=== PATIENT | female | born 1990 | race Caucasian/White ===

== ENCOUNTER 2018-06-03 08:09 | Day surgery (SDC) | payer OTHER, BC ==
[2018-06-03 08:49] LABS: INTERNATIONAL RATION (INR) 1.05; PROTHROMBIN TIME 14.2 SEC (11.4-15.4)
[2018-06-03 08:50] LABS: PARTIAL THROMBOPLASTIN TIME 33.1 SEC (23.5-35.8)
[2018-06-03 10:54] LABS: APPEARANCE ALL TUBES CLEAR; COLOR ALL TUBES COLORLESS; CSF TUBE NUMBER 3
[2018-06-03 10:55] LABS: RED BLOOD CELL,CSF 0 /uL (0-10); WHITE BLOOD CELL,CSF 1 /uL (0-5)
[2018-06-03 11:27] LABS: GLUCOSE,CSF 53 mg/dL (40-70); PROTEIN,CSF 77 mg/dL (12-60)
[2018-06-03 12:09] VITALS: BP 100/63
--- NOTE | 2018-06-03 12:49 | RADIOLOGY REPORT (SQ) ---
EXAM DESCRIPTION: LUMBAR PUNCTURE COMPLETED DATE/TIME: 06/03/2018 10:25 am REASON FOR STUDY: HEADACHES COMPARISON: None. FLUOROSCOPY TIME: 28 seconds. 3 images saved to PACS. TECHNIQUE: Fluoroscopic guided lumbar puncture with opening and closing pressures. LIMITATIONS: None. PROCEDURE: After written consent and assessment were obtained, the patient was brought into the fluo roscopy room and placed prone on the table. The patient's lower back was prepped in a sterile fashio n and an entry site was selected under live fluoroscopic guidance. The entry site was anesthetized wi th 1% lidocaine. A 20 gauge needle was advanced through the skin and into the thecal sac at the level of L3-L4. An opening pressure of 19 mm water units was obtained. After approximately 11ml of CSF wa s drained, a closing pressure of 13 mm water units was obtained. The needle was removed and a sterile bandage was placed of the site. Specimens were sent to the lab for testing. A fluoroscopic spot imag e was saved to PACS confirming level access. FINDINGS: Clear CSF IMPRESSION: Lumbar puncture under fluoroscopy. No immediate complication. COMMENT: Patient medication list reviewed:Yes- Quality ID# [id number]:Eligible professional attests to docu menting in the medical record they obtained, updated, or reviewed the patient's current medications.. Quality ID [id number]: Final reports for procedures using fluoroscopy that document radiation exposure costa ly, or exposure time and number of fluorographic images (if radiation exposure indices are not avail able) TECHNICAL DOCUMENTATION: JOB ID: [id number] [employer]- All Rights Reserved Reading location - IP/workstation name: [email or web address]
== END 2018-06-03 12:09 | disposition home or self-care (01) ==
LOC: RAD 08:09
DX: R51 Headache (principal)
CPT/HCPCS: 36415; 62270; 77003; 82945; 84157; 85610; 85730; 87070; 87205; 89050

== ENCOUNTER 2018-11-04 09:58 | Outpatient (CLI) | payer OTHER, BC ==
[2018-11-04 10:48] LABS: BACTERIA (WET MOUNT) 4+ BACTERIA SEEN; RBCS (WET MOUNT) RARE RBCS SEEN; T.VAGINALIS (WET MOUNT) NO TRICHOMONAS SEEN; WBCS (WET MOUNT) FEW WBCS SEEN; YEAST (WET MOUNT) NO YEAST SEEN
[2018-11-04 10:49] LABS: EPITHELIALS (WET MOUNT) 3+ EPITHELIALS SEEN
[2018-11-04 11:07] LABS: APPEARANCE,URINE SLIGHTLY-CLOUDY; BILIRUBIN,URINE NEGATIVE (NEGATIVE); COLOR,URINE YELLOW; GLUCOSE, URINE NEGATIVE (NEGATIVE); KETONES,URINE NEGATIVE (NEGATIVE); LEUKOCYTE ESTERASE,URINE SMALL (NEGATIVE); NITRITE,URINE NEGATIVE (NEGATIVE); PROTEIN,URINE NEGATIVE (NEGATIVE); URINE SPECIFIC GRAVITY 1.024; UROBILINOGEN,URINE NEGATIVE mg/dL (<2.0)
[2018-11-04 11:17] LABS: URINE AMPHETAMINES SCREEN NEGATIVE; URINE BARBITURATES SCREEN NEGATIVE; URINE BENZODIAZEPINES SCREEN NEGATIVE; URINE COCAINE SCREEN NEGATIVE; URINE MARIJUANA (THC) SCREEN NEGATIVE; URINE METHADONE SCREEN NEGATIVE; URINE PHENCYCLIDINE SCREEN NEGATIVE
--- NOTE | 2018-11-04 11:35 | RADIOLOGY REPORT (SQ) ---
EXAM DESCRIPTION: U/S OB LIMITED COMPLETED DATE/TIME: 11/04/2018 11:16 am REASON FOR STUDY: cramping, cervical length, presentation, growth COMPARISON: None. TECHNIQUE: Limited transvaginal grayscale ultrasound for evaluation of specific requested obstetrica l parameters. LIMITATIONS: None. FINDINGS: CERVICAL LENGTH: 3.0 cm. Closed. AMOS: 4.7 cm. FHR: 157 beats per minute. PRESENTATION: Breech. PLACENTA: Posterior ANATOMY: Not assessed OTHER: Estimated gestational age 25 weeks 2 days. Estimated weight 804 g. 47th percentile. IMPRESSION: LIMITED OBSTETRICAL ULTRASOUND WITH MEASURED PARAMETERS DELINEATED ABOVE. Trimester of : Second trimester - 13 weeks 1 day to 27 weeks 6 days. TECHNICAL DOCUMENTATION: JOB ID: [id number] [employer]- All Rights Reserved Reading location - IP/workstation name: [email or web address]
[2018-11-04 12:14] LABS: CHLAM PCR NOT DETECTED (NOT DETECT)
== END 2018-11-04 12:04 | disposition home or self-care (01) ==
LOC: LC 09:58
PROVIDERS: ATTEND Student in an Organized Health Care Education/Training Program
PROC: 4A1HXCZ Monitoring of Products of Conception, Cardiac Rate, External Approach (ICD-10-PCS; principal; 2018-11-04)
DX: O26.892 Other specified pregnancy related conditions, second trimester (principal); R10.9 Unspecified abdominal pain; Z3A.25 25 weeks gestation of pregnancy
CPT/HCPCS: 76815; 80307; 81001; 87086; 87210; 87491; 87591

== ENCOUNTER 2018-11-11 21:16 | Observation (INO) | payer OTHER, BC ==
[2018-11-11 22:14] LABS: APPEARANCE,URINE CLEAR; BILIRUBIN,URINE NEGATIVE (NEGATIVE); COLOR,URINE STRAW; GLUCOSE, URINE NEGATIVE (NEGATIVE); KETONES,URINE NEGATIVE (NEGATIVE); LEUKOCYTE ESTERASE,URINE NEGATIVE (NEGATIVE); NITRITE,URINE NEGATIVE (NEGATIVE); PROTEIN,URINE NEGATIVE (NEGATIVE); URINE SPECIFIC GRAVITY 1.004; UROBILINOGEN,URINE NEGATIVE mg/dL (<2.0)
[2018-11-11 22:22] LABS: URINE AMPHETAMINES SCREEN NEGATIVE; URINE BARBITURATES SCREEN NEGATIVE; URINE BENZODIAZEPINES SCREEN NEGATIVE; URINE COCAINE SCREEN NEGATIVE; URINE MARIJUANA (THC) SCREEN NEGATIVE; URINE METHADONE SCREEN NEGATIVE; URINE PHENCYCLIDINE SCREEN NEGATIVE
[2018-11-11] MEDS ORDERED: HYDROXYZINE PAMOATE 50 MG CAPSULE PO ONE (23:38)
[2018-11-11] MEDS ORDERED: HYDROXYZINE PAMOATE 50 MG CAPSULE ONE (23:39)
--- NOTE | 2018-11-11 23:48 | RADIOLOGY REPORT (SQ) ---
EXAM DESCRIPTION: RadLex: US LIMITED CLINICAL HISTORY: 27 years Female, cervical length COMPARISON: 11/04/2018 FINDINGS: Single viable IUP is again noted, transverse position. Cervix: 3.1 cm, closed AMOS 11.7 cm Placenta: Posterior. No previa. IMPRESSION: 1. Cervix is 3.1 cm long, closed
[2018-11-12] MEDS ORDERED: NIFEDIPINE 10 MG CAPSULE ONE ×3 (00:17→00:59)
[2018-11-12] MEDS ORDERED: NIFEDIPINE 10 MG CAPSULE PO ONE (00:18)
[2018-11-12] MEDS ORDERED: MORPHINE SULFATE 10 MG/ML INJ IM ONE (02:47)
[2018-11-12] MEDS ORDERED: MORPHINE SULFATE 10 MG/ML INJ ONE (03:06)
[2018-11-12] MEDS ORDERED: NALBUPHINE HCL INJ 10 MG/1 ML AMPULE ONE (03:12)
[2018-11-12] MEDS ORDERED: NALBUPHINE HCL INJ 10 MG/1 ML AMPULE INJ ONE (03:14)
[2018-11-12] MEDS ORDERED: RINGERS SOLUTION,LACTATED 1,000 ML IV ONE (03:16)
[2018-11-12] MEDS ORDERED: RINGERS SOLUTION,LACTATED 1,000 ML IV PRN (03:16)
--- NOTE | 2018-11-12 03:38 | Admission Physical ---
Datetime Report Generated by CPN: 11/12/2018 03:38 CURRENT ADMISSION Chief Complaint: Uterine Contractions Indication for Induction: Not Applicable Admit Impression : , Intrauterine ; No Active Labor; Intact Membranes; Observation/Evaluation Admit Plan: Admit to Unit; Observation/Evaluation ALLERGIES Medication Allergies: No Medication Allergies: adhesive/MO (11/11/2018); gabapentin/MO/Eczema like mesha (11/04/2018); latex (11/04/2018) Latex: Latex Allergies Food Allergies: none Environmental Allergies: none OBSTETRICAL HISTORY EDC: 02/15/2019 00:00 : 5 Para: 1 Term: 1 : 0 SAB: 3 IAB: 0 Livin Gestational Diabetes: No Rh Sensitization: No Incompetent Cervix: No KYLE: No Infertility: No ART Treatment: No Uterine Anomaly: No IUGR: No Hx Previous C/S: No Macrosomia: No Hx Loss/Stillborn: No PIH: No Hx : No Placenta Previa/Abruption: No Depression/PP Depression: No PTL/PROM: No Post Hemorrhage: No Current Procedures: Ultrasound Obstetrical History Comments: 2011 37 weeks male at [facility]- born with 4 kidneys g2 2011 8 weeks g3 2013 6 weeks D_C g4 2014 g5 current 2019 SEE RECORDS Alcohol: No Marijuana : No Cocaine: No Other Illicit Drugs: No Cigarettes: Former Smoker. [id number] MEDICAL HISTORY Diabetes: No Blood Transfusion: No Pulmonary Disease (Asthma, TB): No Breast Disease: No Hypertension: No Shoulder Sawyer Surgery: Yes Heart Disease: No Hosp/Surgery: Yes Autoimmune Disorder: No Anesthetic Complications: No Kidney Disease: No Abnormal Pap Smear: Yes Neuro/Epilepsy: Yes Psychiatric Disorders: No Other Medical Diseases: No Hepatitis/Liver Disease: No Significant Family History: Yes Varicosities/Phlebitis: No Trauma/Violence : No Thyroid Dysfunction: Yes Medical History Comments: hypothyriod, fallopian tube surgery in 2011, abnormal pap in 2018, RSD, recent dx of pseudotumor- seeing Dr. Clinton, fibroids, Rt oophrectomy, hx of crioniotomy and spinal stimulator, chiari malformation type 1, D_C INFECTIOUS HISTORY Gonorrhea: No Genital Herpes: No Chlamydia: No Tuberculosis: No Syphilis: No Hepatitis: No HIV/AIDS Exposure: No Rash or Viral Illness: No HPV: No PHYSICAL EXAM General: Normal HEENT: Normal Neurologic: Normal Thyroid: Deferred Heart: Normal Lungs: Normal Breast: Deferred Back: Normal Abdomen: Normal Genitourinary Exam: Normal Extremities: Normal DTRs: Normal Pelvic Type: Adequate Vital Signs: Reviewed VAGINAL EXAM Dilatation: 0 Effacement: 0 Station: -3 Contraction Comments: q 5 - 10 MEMBRANES Membranes: Intact FETUS A EGA: 26.3 Monitoring: External US FHR- Baseline: 145 Variability: Moderate 6-25bpm Accelerations: 10X10 Decelerations: None Presentation: Transverse Admit Comment: 27yo at 26+3ega presents for contractions. She was seen on labor and delivery on 11/04 with similar complaints. Cvx was closed on 11/04 and on repeat evaluation at approximately 0230 this am. Family and patient in room and feel that there is more to be done even after giving vistaril and procardia 10mg q 15 x 3 doses. She reports despite treatment her contractions are closer together and stronger and is breathing with them. [facility] that there is no change on her cervical length from last week to one done at 2330 last night and that cvx is still unchanged. Pt still insistent that contractions have increased in length and intensity. However, tocometry with very irregular ctx q 4 to 18 minutes - patient reports contractions q 5-7 minutes. She has multiple large uterine fibroids which we have reviewed in the office and here that are likely contributing to the contractions and her discomfort. She has been given motrin in the past to help with fibroid discomfort. Reviewed re-evaluation in a couple of hours and if no change that would recommend discharge. Consider motrin again or even indomethicin at discharge. Procardia did not impact contractions per patient. OBserve and repeat cervical length in am. PLANS FOR LABOR AND DELIVERY Labor and Delivery: None Feeding Preference: Breast Benefit of [employer] Discussed: Yes Circumcision: N/A INFORMED CONSENT Informed Consent Obtained: Section Delivery; Risks, Benefits and Alternatives Discussed Signature: with User ID: [email or web address]
--- NOTE | 2018-11-12 08:49 | RADIOLOGY REPORT (SQ) ---
EXAM DESCRIPTION: U/S OB LIMITED COMPLETED DATE/TIME: 11/12/2018 8:20 am REASON FOR STUDY: repeat cervical length COMPARISON: 11/11/2018 TECHNIQUE: Limited transabdominal grayscale ultrasound for evaluation of specific requested obstetri nayan parameters. LIMITATIONS: None. FINDINGS: CERVICAL LENGTH: 3.7 cm (on the prior examination it measured 3.1 cm). Closed. Cervical funneling at the internal os measures 4.8 cm (this may be related to the patient's history o f contractions). FHR: 140 beats per minute. PLACENTA: Not assessed ANATOMY: Not assessed OTHER: Anterior uterine fibroid measures 7.1 x 6.4 x 6.7 cm. IMPRESSION: 1. LIMITED OBSTETRICAL ULTRASOUND WITH MEASURED PARAMETERS DELINEATED ABOVE. 2. The cervix is 3.7 cm long, closed. Please see above. 3. Anterior uterine fibroid, see above. Trimester of : Second trimester - 13 weeks 1 day to 27 weeks 6 days. TECHNICAL DOCUMENTATION: JOB ID: [id number] [employer]- All Rights Reserved Reading location - IP/workstation name: [email or web address]
[2018-11-12] MEDS ORDERED: LEVOTHYROXINE SODIUM 0.025 MG TABLET PO SCH (09:00)
[2018-11-12] MEDS ORDERED: LEVOTHYROXINE SODIUM 0.112 MG TABLET PO SCH (09:00)
[2018-11-12 09:08] LABS: ABSOLUTE EOSINOPHILS # (AUTO) 0.1 10^3/uL (0.0-0.6); ABSOLUTE LYMPHOCYTES (AUTO) 1.7 10^3/uL (0.5-4.7); ABSOLUTE MONOCYTES (AUTO) 0.8 10^3/uL (0.1-1.4); ABSOLUTE NEUT (AUTO) 9.2 10^3/uL (1.7-8.2); BASOPHILS % (AUTO) 0.4 % (0-2); EOSINOPHILS % (AUTO) 1.1 % (0-6); HEMATOCRIT 30.1 % (36.0-47.0); HEMOGLOBIN 10.5 g/dL (12.0-15.5); LYMPHOCYTES % (AUTO) 14.4 % (13-45); MEAN CORPUSCULAR HEMOGLOBIN 29.7 pg (27.0-33.4); MEAN CORPUSCULAR HGB CONC 34.7 g/dL (32.0-36.0); MEAN CORPUSCULAR VOLUME 86 fl (80-97); MONOCYTES % (AUTO) 6.4 % (3-13); PLATELET COUNT 292 10^3/uL (150-450); RED BLOOD COUNT 3.52 10^6/uL (3.72-5.28); RED CELL DISTRIBUTION WIDTH 14.4 % (11.5-14.0); SEGMENTED NEUTROPHILS % (AUTO) 77.7 % (42-78); TOTAL CELLS COUNTED % (AUTO) 100 %; WHITE BLOOD COUNT 11.8 10^3/uL (4.0-10.5)
--- NOTE | 2018-11-12 09:59 | Discharge Summary ---
Discharge Summary (SDC) - Discharge Final Diagnosis: false labor Discharge Date: 11/12/18 Condition: Good Treatment or Instructions: f/u in am at [facility] and begin tid [facility]errals: [facility] - Discharge Diet: As Tolerated Discharge Activity: Activity As Tolerated, Balance Activity w/Rest, Walk Frequently Home Care Assistance: None Needed Report the Following to Your Physician Immediately: Increase in Pain, Fever over 101 Degrees, Unusual Bleeding, Swelling, Increased Soreness, Large Clots
[2018-11-12] MEDS ORDERED: LEVOTHYROXINE SODIUM 0.1 MG TABLET PO SCH (10:00)
== END 2018-11-12 10:05 | disposition home or self-care (01) ==
LOC: LC 21:16 → LR 11-12 02:55
PROVIDERS: ADMIT Student in an Organized Health Care Education/Training Program; ATTEND Student in an Organized Health Care Education/Training Program
DX: O47.02 False labor before 37 completed weeks of gestation, second trimester (principal); Z3A.26 26 weeks gestation of pregnancy
CPT/HCPCS: 36415; 85025; 81001; 80307; 76815 ×2; J2300; J3490; G0378; G0379; J2270

== ENCOUNTER 2019-02-03 20:24 | Outpatient (CLI) | payer BC, OTHER ==
[2019-02-03 21:12] LABS: APPEARANCE,URINE CLOUDY; BILIRUBIN,URINE NEGATIVE (NEGATIVE); COLOR,URINE AMBER; GLUCOSE, URINE 50 mg/dL (NEGATIVE); KETONES,URINE 20 mg/dL (NEGATIVE); LEUKOCYTE ESTERASE,URINE TRACE (NEGATIVE); NITRITE,URINE NEGATIVE (NEGATIVE); PROTEIN,URINE 30 mg/dL (NEGATIVE); URINE SPECIFIC GRAVITY 1.023; UROBILINOGEN,URINE NEGATIVE mg/dL (<2.0)
[2019-02-03 21:31] LABS: URINE AMPHETAMINES SCREEN NEGATIVE; URINE BARBITURATES SCREEN NEGATIVE; URINE BENZODIAZEPINES SCREEN NEGATIVE; URINE COCAINE SCREEN NEGATIVE; URINE MARIJUANA (THC) SCREEN NEGATIVE; URINE METHADONE SCREEN NEGATIVE; URINE PHENCYCLIDINE SCREEN NEGATIVE
[2019-02-03] MEDS ORDERED: NALBUPHINE HCL INJ 10 MG/1 ML AMPULE INJ ONE (23:15)
[2019-02-03] MEDS ORDERED: NALBUPHINE HCL INJ 10 MG/1 ML AMPULE ONE (23:16)
== END 2019-02-03 23:35 | disposition home or self-care (01) ==
LOC: LC 20:24
PROVIDERS: ATTEND Obstetrics & Gynecology
PROC: 4A1HXCZ Monitoring of Products of Conception, Cardiac Rate, External Approach (ICD-10-PCS; principal; 2019-02-03)
DX: O36.8130 Decreased fetal movements, third trimester, not applicable or unspecified (principal); O47.1 False labor at or after 37 completed weeks of gestation; Z3A.38 38 weeks gestation of pregnancy
CPT/HCPCS: 59025; 81005; 80307; J2300

== ENCOUNTER → 2019-04-19 | Outpatient (CLI) | payer OTHER ==
--- NOTE | 2019-04-19 14:40 | WOMENS IMAGING REPORT ---
EXAM DESCRIPTION: U/S THYROID/ST TIS HEAD NECK COMPLETED DATE/TIME: 04/19/2019 2:03 pm REASON FOR STUDY: HYPOTHYROIDISM COMPARISON: 03/30/2016 CT cervical spine 01/31/2015 TECHNIQUE: Dynamic and static bey-scale images acquired of the thyroid gland. Selected additional c olor/power Doppler images recorded. All images stored to PACS. LIMITATIONS: None. FINDINGS: The thyroid gland is diffusely small and heterogeneous in echogenicity with increased colo r flow likely from chronic thyroiditis. Appearance is similar compared to CT exam 01/31/2015. Right lobe thyroid 4.4 x 1.6 x 1.4 cm in size Left lobe thyroid 4.8 x 1.4 x 1.4 cm in size Thyroid isthmus 2 mm in thickness. IMPRESSION: Small heterogeneously hypoechoic thyroid gland with increased color flow from chronic th yroiditis. TECHNICAL DOCUMENTATION: JOB ID: [id number] [employer]- All Rights Reserved Reading location - IP/workstation name: [email or web address]
== END ==
LOC: WI 13:30
PROVIDERS: ATTEND Physician Assistant Medical
DX: E03.9 Hypothyroidism, unspecified (principal); E06.5 Other chronic thyroiditis
CPT/HCPCS: 76536

== ENCOUNTER → 2019-10-13 | Outpatient (CLI) | payer OTHER, BC | LOC: OD 12:16 | PROVIDERS: ATTEND Student in an Organized Health Care Education/Training Program | DX: O36.80X0 Pregnancy with inconclusive fetal viability, not applicable or unspecified (principal) | CPT/HCPCS: 36415; 84702; 86900; 86901 ==

== ENCOUNTER → 2019-10-15 | Outpatient (CLI) | payer BC, OTHER | LOC: OD 07:07 | PROVIDERS: ATTEND Student in an Organized Health Care Education/Training Program | DX: O36.80X0 Pregnancy with inconclusive fetal viability, not applicable or unspecified (principal) | CPT/HCPCS: 36415; 84702 ==